=== PATIENT | male | born 1995 | race Caucasian/White ===

== ENCOUNTER 2020-08-31 10:54 | Outpatient (REF) | payer OTHER, SELFPAY | END 2020-08-31 10:55 | disposition home or self-care (01) | LOC: HO.10HDL 10:54 | PROVIDERS: Visit Provider Internal Medicine | DX: J02.9 Acute pharyngitis, unspecified (principal) | CPT/HCPCS: 87071 ==

== ENCOUNTER 2021-12-04 09:39 | Outpatient (REF) | payer OTHER, SELFPAY ==
[2021-12-04 12:35] LABS: Binax Internal Control QC Valid; Binax Lot number: 9864; Binax Now Covid-19 Ag Negative (Negative)
== END 2021-12-04 09:40 | disposition home or self-care (01) ==
LOC: HO.LAB 09:39
PROVIDERS: Visit Provider Internal Medicine
DX: Z20.822 Contact with and (suspected) exposure to COVID-19 (principal)
CPT/HCPCS: 36415

== ENCOUNTER 2023-01-08 10:28 | Emergency (ER) | payer MEDICAID, SELFPAY ==
--- NOTE | 2023-01-08 | ECG_ITS ---
Test Reason : PALPITATIONS Blood Pressure : / mmHG Vent. Rate : 067 BPM Atrial Rate : 067 BPM P-R Int : 152 ms QRS Dur : 086 ms QT Int : 374 ms P-R-T Axes : 048 063 038 degrees QTc Int : 395 ms Normal sinus rhythm with sinus arrhythmia Normal ECG No previous ECGs available Referred By: Yris Castellon Electronically Signed By:IBIS LUA MD
[2023-01-08 10:42] VITALS: BP 153/78; PULSE 83; RESP 18; TEMP 36.8; O2SAT 99; BMI 30.1
[2023-01-08 11:13] LABS: MANUAL DIFF FLAG NO
[2023-01-08 11:20] LABS: Basophils Absolute Auto 0.1 X10*3/uL (0.0-0.2); Basophils Percent Auto 0.7 % (0-2); Eosinophils Absolute Auto 0.1 X10*3/uL (0.0-0.4); Eosinophils Percent Auto 0.7 % (0-4); Hematocrit 43.4 % (42.0-52.0); Hemoglobin 15.1 g/dl (14.0-18.0); Imm Gran Abs Auto 0.03 X10*3/uL (0.00-0.03); Imm Gran Pct Auto 0.4 % (0.0-0.4); Lymphocytes Absolute Auto 1.9 X10*3/uL (1.2-4.9); Lymphocytes Percent Auto 22.7 % (20-40); Mean Corpuscular HGB Conc 34.8 g/dl (31.0-36.0); Mean Corpuscular Hemoglobin 34.6 pg (27.0-33.0); Mean Corpuscular Volume 99.5 fL (80.0-98.0); Mean Platelet Volume 11.5 fL (9.4-12.4); Monocytes Absolute Auto 0.7 X10*3/uL (0.1-1.2); Monocytes Percent Auto 8.5 % (2-11); Neutrophils Absolute Auto 5.5 x10*3/uL (2.0-8.3); Platelet Count 166 X10*3/uL (160-400); Red Blood Count 4.36 X10*6/uL (4.60-5.80); Red Cell Distribution Width 11.4 % (11.0-16.0); White Blood Count 8.2 X10*3/uL (4.8-10.8)
[2023-01-08 11:39] LABS: Alanine Aminotransferase 40 U/L (0-40); Albumin Level 4.5 g/dL (3.5-5.0); Alkaline Phosphatase 79 U/L (39-117); Anion Gap 15 (12-20); Aspartate Amino Transferase 23 U/L (5-37); Bilirubin Direct 0.2 mg/dL (0.0-0.5); Bilirubin Total 0.8 mg/dL (0.0-1.0); Blood Urea Nitrogen 10 mg/dL (9-16); Calcium 9.5 mg/dL (8.4-10.2); Carbon Dioxide 23 mmol/L (22-29); Chloride 106 mmol/L (96-108); Creatinine Clr Calc Pharmacy 142.5; Estimated Glomerular Filt Rate > 60; Glucose Random 95 mg/dL (60-115); Magnesium 1.9 mg/dL (1.6-2.6); Potassium 4.4 mmol/L (3.3-5.1); Sodium 140 mmol/L (135-145); Total Protein 6.7 g/dL (6.5-8.0)
--- NOTE | 2023-01-08 11:50 | ED_ITS ---
HPI - Arrhythmia/Palpitations General Chief Complaint: Arrhythmia/Palpitations Stated Complaint: HBP, racing heart beat Time Seen by Provider: 01/08/23 11:09 Source: patient Mode of arrival: ambulatory Limitations: no limitations History of Present Illness HPI narrative: 27 yo male presents to the ER for evaluation of intermittent heart palpitations for the last few years. He states the symptoms have been increasing in frequency and duration over the last couple of months. He reports over this last weekend he took his blood pressure was noted to be 150/130. He had episode of palpitations along with tingling in his bilateral hands and bilateral feet. He laid down and his symptoms eventually resolved. He denies any associated chest pain or shortness of breath. He states the symptoms self-resolved. He states today when he was on his way to work he had recurrence of palpitations and he started to feel lightheaded. He reports a history of anxiety and history of similar symptoms when he would smoke marijuana. He states the last 2 episodes have not been associated with marijuana smoking. He has not seen his PCP in the last 4 years. He denies any other drugs use. He reports drinking varying amounts of caffeine. MD complaint: palpitations Onset (ago): year(s) Duration: intermittent Severity: similar to previous episodes Context: occurred during rest Associated symptoms: near-syncope, diaphoresis and paresthesias Related Data Previous Rx's Medication Instructions Recorded hydroxyzine HCl 25 mg tablet 25 mg PO TID PRN anxiety #14 tabs 01/08/23 Allergies Allergy/AdvReac Type Severity Reaction Status Date / Time Sulfa (Sulfonamide AdvReac Rash Verified 01/08/23 10:45 Antibiotics) Review of Systems Review of Systems: Yes all other systems are reviewed and are negative [facility] Social History Social History Advance Directives: Yes Advance Directives on File: Yes Advance Directives Date on File: 08/31/20 Physical Exam Vital Signs: Vital Signs: Last Vital Signs Temp 98.3 F 01/08/23 10:42 Pulse 83 01/08/23 10:42 Resp 18 01/08/23 10:42 BP 153/78 H 01/08/23 10:42 Pulse Ox 99 01/08/23 10:42 O2 Del Method 01/08/23 10:42 BMI result Body Mass Index 30.1 Appearance: Alert. Oriented X3. No acute distress. Smells of cigarettes Eyes: Pupils equal, round and reactive to light. ENT: Pharynx normal. Neck: Normal inspection. Neck supple. CVS: Normal heart rate and rhythm. Pulses normal. Respiratory: No respiratory distress. Breath sounds normal. Abdomen: Soft and nontender. +BS x4 Skin: Skin warm and dry. Normal skin color. Normal skin turgor. No rashes. Extremities: No lower extremity edema. No calf swelling, negative Homans sign Neuro: Oriented X 3. No motor deficit. No sensory deficit. Nonfocal Course Course Course Narrative: 19-year-old male with history of marijuana use, anxiety presents to the ER for evaluation of intermittent palpitations for the last several years. He states the frequency of the episodes are increasing as well as the duration. He is currently symptom free but had an episode this morning. His vital signs are st able. Will get basic labs an EKG. Most likely anxiety contributing, also possible adverse side effect to marijuana. Reevaluation(s) Reevaluation #1: Labs are unremarkable. EKG with normal sinus rhythm, sinus arrhythmia/ will prescribe hydroxyzine p.r.n. anxiety and have him follow-up with his PCP. At this time comfortable discharge home with outpatient follow-up Medical Decision Making Differential Diagnosis Differential Diagnoses: The differential diagnosis associated with the presentation includes anxiety, panic attacks, cardiac arrhythmia, hyperthyroidism, electrolyte abnormality, anemia, dehydration, doubt ACS or PE. Lab Data MDM Lab Attestation statement: I reviewed the patient's lab results. Unremarkable workup 01/08/23 11:08 01/08/23 11:08 Labs: Lab Results 01/08/23 01/08/23 Range/Units 11:08 11:08 WBC 8.2 (4.8-10.8) X10*3/uL RBC 4.36 L (4.60-5.80) X10*6/uL Hgb 15.1 (14.0-18.0) g/dl Hct 43.4 (42.0-52.0) % MCV 99.5 H (80.0-98.0) fL MCH 34.6 H (27.0-33.0) pg MCHC 34.8 (31.0-36.0) g/dl RDW 11.4 (11.0-16.0) % Plt Count 166 (160-400) X10*3/uL MPV 11.5 (9.4-12.4) fL Immature Gran % (Auto) 0.4 (0.0-0.4) % Neut % (Auto) 67.0 (45-73) % Lymph % (Auto) 22.7 (20-40) % [place] % (Auto) 8.5 (2-11) % Eos % (Auto) 0.7 (0-4) % Baso % (Auto) 0.7 (0-2) % Lymph # (Auto) 1.9 (1.2-4.9) X10*3/uL [place] # (Auto) 0.7 (0.1-1.2) X10*3/uL Eos # (Auto) 0.1 (0.0-0.4) X10*3/uL Baso # (Auto) 0.1 (0.0-0.2) X10*3/uL Abs Immat Gran (auto) 0.03 (0.00-0.03) X10*3/uL Absolute Neuts (auto) 5.5 (2.0-8.3) x10*3/uL Absolute Nucleated RBC 0.000 (0.0-0.012) X10*3/uL Nucleated RBC % (auto) 0.0 (0.0-0.2) /100WBC Sodium 140 (135-145) mmol/L Potassium 4.4 (3.3-5.1) mmol/L Chloride 106 (96-108) mmol/L Carbon Dioxide 23 (22-29) mmol/L Anion Gap 15 (12-20) BUN 10 (9-16) mg/dL Creatinine 0.84 (0.5-1.4) mg/dL Estim Creat Clear Calc 142.5 Estimated GFR > 60 Random Glucose 95 (60-115) mg/dL Calcium 9.5 (8.4-10.2) mg/dL Magnesium 1.9 (1.6-2.6) mg/dL Total Bilirubin 0.8 (0.0-1.0) mg/dL Direct Bilirubin 0.2 (0.0-0.5) mg/dL AST 23 (5-37) U/L ALT 40 (0-40) U/L Alkaline Phosphatase 79 (39-117) U/L Total Protein 6.7 (6.5-8.0) g/dL Albumin 4.5 (3.5-5.0) g/dL TSH 0.70 (0.32-4.0) uIU/mL Independent Interpretation I performed an independent interpretation of an: EKG Interpretation: EKG with normal sinus rhythm, sinus arrhythmia, ventricular rate 67 beats per minute, normal [place] interval, normal QTC, slightly peaked T-waves in V3 through V6. Normal QRS. No ST segment elevations or depressions. Independent Historian Clinical information obtained from an independent historian. History obtained from or confirmed by: Parent Tests considered The following testing was considered but not selected: CXR - no SOB or chest pain Prescription Management I considered prescription management with: Other (anxiolytic) Critical Care Time Critical Care Time Critical Care Time: No Discharge Plan Discharge Clinical Impression: Palpitations, Anxiety Patient Disposition: Home, Self-Care Instructions: Heart Palpitations (DC), Anxiety (ED) Additional Instructions: Your labs were normal. Your EKG did not show any concerning arrythmia or changes concerning for strain on the heart. Recommend following up with your doctor for further evaluation and treatment Try the prescribed medication as needed for anxiety If you develop new or worsening symptoms call 911 or come back to the ER for further evaluation. Prescriptions: New hydroxyzine HCl 25 mg tablet 25 mg PO TID PRN (Reason: anxiety) Qty: 14 0RF Referrals: Obey Aragon MD [Primary Care Provider] - (palpitations, anxiety) Stand Alone Forms: Work/School Release Interventions: ED Discharge Assessment Last Done: 01/08/23 12:43 Discharge Date/Time: 01/08/23 13:11
== END 2023-01-08 13:11 | disposition home or self-care (01) ==
PROVIDERS: Physician Assistant; Emergency Provider Emergency Medicine; PCP Internal Medicine
DX: R00.2 Palpitations (principal); F41.9 Anxiety disorder, unspecified; F12.90 Cannabis use, unspecified, uncomplicated
CPT/HCPCS: 36415; 80048; 80076; 83735; 84443; 85025; 93005; 99283

== ENCOUNTER 2023-09-26 11:20 | Outpatient (REF) | payer MEDICAID, SELFPAY ==
[2023-09-26 13:13] LABS: Appearance Urine Turbid; Color Urine Dark Yellow; Glucose Urine UA Negative (Negative); Leukocyte Esterase Urine Negative (Negative); Nitrite Urine Negative (Negative); PH 5.5 (5.0-9.0); Specific Gravity - Urine >= 1.030 (1.005-1.025); Urine Blood Negative (Negative); Urine Ketones Negative (Negative); Urine Protein Negative (Neg-Trace)
[2023-09-26 13:25] LABS: MANUAL DIFF FLAG NO
[2023-09-26 13:50] LABS: Basophils Absolute Auto 0.1 X10*3/uL (0.0-0.2); Basophils Percent Auto 0.8 % (0-2); Eosinophils Percent Auto 0.4 % (0-4); Hematocrit 44.2 % (42.0-52.0); Hemoglobin 15.1 g/dl (14.0-18.0); Imm Gran Abs Auto 0.05 X10*3/uL (0.00-0.03); Imm Gran Pct Auto 0.5 % (0.0-0.4); Lymphocytes Absolute Auto 1.8 X10*3/uL (1.2-4.9); Lymphocytes Percent Auto 19.8 % (20-40); Mean Corpuscular HGB Conc 34.2 g/dl (31.0-36.0); Mean Corpuscular Hemoglobin 34.6 pg (27.0-33.0); Mean Corpuscular Volume 101.4 fL (80.0-98.0); Mean Platelet Volume 12.2 fL (9.4-12.4); Monocytes Absolute Auto 0.8 X10*3/uL (0.1-1.2); Monocytes Percent Auto 8.3 % (2-11); Neutrophils Absolute Auto 6.4 x10*3/uL (2.0-8.3); Neutrophils Percent Auto 70.2 % (45-73); Platelet Count 174 X10*3/uL (160-400); Red Blood Count 4.36 X10*6/uL (4.60-5.80); Red Cell Distribution Width 11.6 % (11.0-16.0); White Blood Count 9.1 X10*3/uL (4.8-10.8)
[2023-09-26 14:12] LABS: Alanine Aminotransferase 47 U/L (0-40); Albumin Level 4.6 g/dL (3.5-5.0); Alkaline Phosphatase 81 U/L (39-117); Anion Gap 12 (12-20); Aspartate Amino Transferase 29 U/L (5-37); Bilirubin Total 0.6 mg/dL (0.0-1.0); Blood Urea Nitrogen 16 mg/dL (9-16); C Reactive Protein 0.14 mg/dL (< or = 0.50); Calcium 9.7 mg/dL (8.4-10.2); Carbon Dioxide 24 mmol/L (22-29); Chloride 107 mmol/L (96-108); Estimated Glomerular Filt Rate > 60; Glucose Random 94 mg/dL (60-115); Potassium 3.6 mmol/L (3.3-5.1); Sodium 139 mmol/L (135-145); Total Protein 7.2 g/dL (6.5-8.0)
== END 2023-09-26 11:21 | disposition home or self-care (01) ==
LOC: HO.10HDL 11:20
PROVIDERS: Visit Provider Internal Medicine
DX: R10.32 Left lower quadrant pain (principal); R63.5 Abnormal weight gain
CPT/HCPCS: 36415; 80053; 81003; 84443; 85025; 86140

== ENCOUNTER 2025-11-30 11:05 | Outpatient (AMB) | payer OTHER, SELFPAY ==
--- NOTE | 2025-11-30 11:13 | AM.OFFWIN_ITS ---
Intake Vital Signs 11/30/25 11:14 Height 5 ft 8 in Weight 190 lb BMI 28.9 BP 120/78 Blood Pressure Location Rt brachial Position Sitting Pulse 108 H Pulse Source Pulse Oximeter Temp 97.7 F Temp Source Oral Pulse Oximetry (%) 98 Oxygen Delivery Method Room Air Intake Visit Reasons: EP Possible cyst on back Intake Note: Patient presents c/o growing, inflamed bump on back. Patient states it started leaking this morning. Patient declined TDap immunization today. Nataly Rodriguez CMA Patient Tobacco Use Status: Current everyday Tobacco user Allergies Sulfa (Sulfonamide Antibiotics) Adverse Reaction (Verified 11/30/25 11:17) Rash Medication List - Last Reconciled 11/30/25 by Angel Veliz MD No Known Home Meds HPI EP Possible cyst on back HPI Details History of Present Illness The patient is a 30 year old male presenting with an inflamed and leaking cyst on his back. Infected Sebaceous Cyst: - The patient reports having a cyst on h is back that has become large and inflamed over the last two weeks. - The cyst began leaking this morning. - He reports it is not very painful unle ss he lies on it. - He has no known allergies to antibioti cs. Medical History: - No known drug allergies. - Tetanus immunization is not up to date . Social History: - The patient has tattoos. Problem List - Infected sebaceous cyst - Preventative care: Tetanus immunizatio n Plan - An attempt was made to wendi the cyst; minimal pus was expressed. - The area was cleaned with Betadine bef ore wendi and covered with a sterile gauze dressing after - Prescribed Augmentin to be taken twice daily for 10 days. - Instructed the patient to keep the ban dage on for at least couple of days, and change daily. - Provided the patient with extra gauze for dressing changes at home. - He refuced tetanus vaccine. - Recommended follow-up on Friday for re -evaluation of the cyst. Review of Systems - General: No fever no chills - Neurological: No headaches no dizziness - Ear nose throat: No sore throat no hearing difficulty no ear pain - Cardiovascular: No syncope, no chest pain, no palpitations - Gastrointestinal: No nausea vomiting or diarrhea Physical Exam General: No acute distress HEENT: No acute findings Neck: Supple Respiratory system: Able to talk in full sentences Gastrointestinal: No pain Extremities: No new findings CHILD CARE ASSOCIATE TEACHER: Alert awake oriented x3 motor intact Skin: Cyst on back size of valentine , inflamed , area cleaned with betadine, Laced with number 11 scalpel , not much puss came out , covered with sterile gauze, and skin tape [facility] Social History Patient Tobacco Use Status: Current everyday Tobacco user Advance Directives Date on File: 08/31/20 Physical Exam Vital Signs: Last Vital Signs Temp 97.7 F 11/30/25 11:14 Pulse 108 H 11/30/25 11:14 BP 120/78 11/30/25 11:14 Pulse Ox 98 11/30/25 11:14 Oxygen Delivery Method Room Air 11/30/25 11:14 BMI result Body Mass Index 28.9 Office Procedures Incision and Drainage Details: size of valentine pussy sebaceous cyst upper back in the middle , inflamed has tiny mouth leaking puss, area was cleaned with Betadine and lanced with # 11 blade, little puss came out, area was cleaned again and covered with gauze and skin tape patient refused tdap vaccine tolerated procedure well Incision and drainage performed by: Angel Veliz Informed consent given: Yes Time out checklist: patient, procedure, site marked/identified, positioning of patient (sitting) and supplies available (betadine / sterile gauze / # 11 blade/ sterile gloves / skin tape) Anesthesia: none Incision with: #11 blade Drainage quality: minimal-none Probed cavity: No Culture taken: No Lesion: drainage, fluctuance and induration Lesion size (cm): 4 Hemostasis: pressure Dressing: gauze Patient tolerated procedure: well Complications: No Assessment & Plan Assessment & Plan (1) Back abscess: Code(s): L02.212 - Cutaneous abscess of back [any part, except buttock and flank] Plan Problem List - Infected sebaceous cyst - Preventative care: Tetanus immunization Plan - An attempt was made to wendi the cyst; minimal pus was expressed. - The area was cleaned with Betadine before wendi and covered with a sterile gauze dressing after - Prescribed Augmentin to be taken twice daily for 10 days. - Instructed the patient to keep the bandage on for at least couple of days, and change daily. - Provided the patient with extra gauze for dressing changes at home. - He refuced tetanus vaccine. - Recommended follow-up on Friday for re-evaluation of the cyst. Medications: New amoxicillin-pot clavulanate 875-125 mg 1 tab PO BID 20 tabs 0RF 10 days Discontinued hydroxyzine HCl Discontinued Reason: Patient no longer taking 25 mg PO TID PRN 14 tabs 0RF anxiety Coding Level of Care Code Est Pt Level 4 (09956) Diagnoses Back abscess L02.212 CPT Codes Office Procedure ([id number]) Time Spent (min) 30 Comment time spent in care of this patient
[2025-11-30 11:14] VITALS: BP 120/78; PULSE 108; TEMP 36.5; O2SAT 98; BMI 28.9
--- OUTSIDE RECORDS SUMMARY | 2025-11-30 12:44 | XMS_ITS | Encounter Summary ---
Author Organization [facility] Address [address] [place] [address] Phone Care Team Providers Care Supervisor Pit And Auxiliaries Name Role Phone Belen Kendrick MD Primary Care Provider [phone] Encounter Details Date Type Department Care Team (Late st Contact Info) Description 11/16/2013 [place]ation [facility] [place] [address] [place] [address] Family Medicine, Physician [address] [place], [place] [phone] Social History Tobacco Use Types Packs/Day Years Used Date Smoking Tobacco: Never Assessed Sex and Gender Information Value Date Recorded Sex Assigned at Not on file Legal Sex Male 4:52 PM EDT Gender Identity Not on file Sexual Orientation Not on file documented as of this encounter Plan of Treatment Not on file documented as of this encounter Visit Diagnoses Not on filedocumented in this encounter Care Teams Supervisor Pit And Auxiliaries Relationship Specialty Start Date End Date Belen Kendrick MD [address] [place] [address] PCP - General 07/11/17 documented as of this encounter
--- OUTSIDE RECORDS SUMMARY | 2025-11-30 12:44 | XMS_ITS | Encounter Summary ---
Author Organization [facility] Address [address] [place] [address] Phone Care Team Providers Care Veterans Services Specialist Name Role Phone Belen Kendrick MD Primary Care Provider [phone] Encounter Details Date Type Department Care Team (Late st Contact Info) Description 03/20/2012 Documentation [facility] [place] Family Medicine [address] [place] [address] Family Medicine, Physician [address] [place], [place] [phone] Social History Tobacco Use Types Packs/Day Years [...] on filedocumented in this encounter Care Teams Veterans Services Specialist Relationship Specialty Start Date End Date Belen Kendrick MD [address] [place] [address] PCP - General 07/11/17 documented as of this encounter
--- OUTSIDE RECORDS SUMMARY | 2025-11-30 12:44 | XMS_ITS | Encounter Summary ---
Author Organization [facility] Address [address] [place] [address] Phone Care Team Providers Care Personal Lines Underwriter Name Role Phone Belen Kendrick MD Primary Care Provider [phone] Encounter Details Date Type Department Care Team (Late st Contact Info) Description 05/11/2014 Documentation [facility] [address] [place] [address] Family Medicine, Physician [address] [place], [place] [phone] Social History Tobacco Use Types Packs/Day Years [...] on filedocumented in this encounter Care Teams Personal Lines Underwriter Relationship Specialty Start Date End Date Belen Kendrick MD [address] [place] [address] PCP - General 07/11/17 documented as of this encounter
--- OUTSIDE RECORDS SUMMARY | 2025-11-30 12:44 | XMS_ITS | Encounter Summary ---
Author Organization [facility] Address [address] [place] [address] Phone Care Team Providers Care Iuss Acoustic Analyst Name Role Phone Belen Kendrick MD Primary Care Provider [phone] Encounter Details Date Type Department Care Team (Late st Contact Info) Description 07/05/2013 [place] [facility] [place] [address] [place] [address] Family Medicine, Physician [address] [place], [place] [phone] Social History Tobacco Use Types Packs/Day Years [...] on filedocumented in this encounter Care Teams Iuss Acoustic Analyst Relationship Specialty Start Date End Date Belen Kendrick MD [address] [place] [address] PCP - General 07/11/17 documented as of this encounter
--- OUTSIDE RECORDS SUMMARY | 2025-11-30 12:44 | XMS_ITS | Encounter Summary ---
Author Organization [facility] Address [address] [place] [address] Phone Care Team Providers Care Reduction Furnace Operator Helper Name Role Phone Belen Kendrick MD Primary Care Provider [phone] Encounter Details Date Type Department Care Team (Late st Contact Info) Description 04/02/2013 Documentation [facility] [address] [place] [address] Family Medicine, Physician [address] [place], [place] [phone] Social History Tobacco Use Types Packs/Day Years [...] on filedocumented in this encounter Care Teams Reduction Furnace Operator Helper Relationship Specialty Start Date End Date Belen Kendrick MD [address] [place] [address] PCP - General 07/11/17 documented as of this encounter
--- OUTSIDE RECORDS SUMMARY | 2025-11-30 12:44 | XMS_ITS | Encounter Summary ---
Author Organization [facility] Address [address] [place] [address] Phone Care Team Providers Care Senior Billing Consultant Name Role Phone Belen Kendrick MD Primary Care Provider [phone] Encounter Details Date Type Department Care Team (Late st Contact Info) Description 12/11/2012 Documentation [facility] Family Medicine [address] [place] [address] Family Medicine, Physician [address] [place], [place] [phone] Social History Tobacco Use Types Packs/Day Years [...] on filedocumented in this encounter Care Teams Senior Billing Consultant Relationship Specialty Start Date End Date Belen Kendrick MD [address] [place] [address] PCP - General 07/11/17 documented as of this encounter
--- OUTSIDE RECORDS SUMMARY | 2025-11-30 12:44 | XMS_ITS | Encounter Summary ---
Author Organization [facility] Address [address] [place] [address] Phone Care Team Providers Care Platform Consultant Name Role Phone Belen Kendrick MD Primary Care Provider [phone] Encounter Details Date Type Department Care Team (Late st Contact Info) Description 07/17/2017 Conversion Encounter [facility] [place] [address] [place] [address] Social History Tobacco Use Types Packs/Day Years Used Date Smoking Tobacco: Every Day Comments:Current every day s moker Sex and Gender Information Value Date Recorded Sex Assigned at Not on file Legal Sex Male 4:52 PM EDT Gender Identity Not on file Sexual Orientation Not on file documented as of this encounter Plan of Treatment Not on file documented as of this encounter Visit Diagnoses Not on filedocumented in this encounter Care Teams Platform Consultant Relationship Specialty Start Date End Date Belen Kendrick MD [address] [place] [address] PCP - General 07/11/17 documented as of this encounter
--- OUTSIDE RECORDS SUMMARY | 2025-11-30 12:44 | XMS_ITS | Encounter Summary ---
Author Organization [facility] Address [address] [place] [address] Phone Care Team Providers Care Chaplaincy Name Role Phone Belen Kendrick MD Primary Care Provider [phone] Encounter Details Date Type Department Care Team (Late st Contact Info) Description 05/11/2014 Documentation [facility] [address] [place] [address] Family Medicine, Physician [address] [place], [place] [phone] Social History Tobacco Use Types Packs/Day Years [...] on filedocumented in this encounter Care Teams Chaplaincy Relationship Specialty Start Date End Date Belen Kendrick MD [address] [place] [address] PCP - General 07/11/17 documented as of this encounter
--- OUTSIDE RECORDS SUMMARY | 2025-11-30 12:44 | XMS_ITS | Encounter Summary ---
Author Organization [facility] Address [address] [place] [address] Phone Care Team Providers Care Assembler Small Products Name Role Phone Belen Kendrick MD Primary Care Provider Encounter Details Date Type Department Care Team (Late st Contact Info) Description 03/20/2012 Documentation [facility] [place] Family Medicine [address] [place] [address] Family Medicine, Physician [address] [place], [place] [phone] Social History Tobacco Use Types Packs/Day Years [...] on filedocumented in this encounter Care Teams Assembler Small Products Relationship Specialty Start Date End Date Belen Kendrick MD [address] [place] [address] PCP - General 07/11/17 documented as of this encounter
--- OUTSIDE RECORDS SUMMARY | 2025-11-30 12:44 | XMS_ITS | Encounter Summary ---
Author Organization [facility] Address [address] [place] [address] Phone Care Team Providers Care Back Stayer Name Role Phone Belen Kendrick MD Primary Care Provider [phone] Encounter Details Date Type Department Care Team (Late st Contact Info) Description 11/16/2013 Documentation [facility] [place] [address] [place] [address] Family Medicine, Physician [address] [place], [place] [phone] Social History Tobacco Use Types Packs/Day Years [...] on filedocumented in this encounter Care Teams Back Stayer Relationship Specialty Start Date End Date Belen Kendrick MD [address] [place] [address] PCP - General 07/11/17 documented as of this encounter
--- OUTSIDE RECORDS SUMMARY | 2025-11-30 12:44 | XMS_ITS | Encounter Summary ---
Author Organization [facility] Address [address] [place] [address] Phone Care Team Providers Care Global Category Manager Name Role Phone Belen Kendrick MD Primary Care Provider [phone] Encounter Details Date Type Department Care Team (Late st Contact Info) Description 11/13/2011 Documentation [facility] [address] [place] [address] Family Medicine, Physician [address] [place], [place] [phone] Social History Tobacco Use Types Packs/Day Years [...] on filedocumented in this encounter Care Teams Global Category Manager Relationship Specialty Start Date End Date Belen Kendrick MD [address] [place] [phone] PCP - General 07/11/17 documented as of this encounter
--- OUTSIDE RECORDS SUMMARY | 2025-11-30 12:44 | XMS_ITS | Clinical Summary ---
Author Organization [facility] Address [address] [place] [phone] Phone Care Team Providers Care Hi Teacher Name Role Phone Belen Kendrick MD Primary Care Provider [phone] Immunizations Immunization Administration Dates Next Due DTP 04/30/1996, 5,02/02/1995,12/05 DTaP 5 10/09/1999 H1N1 2009 HPV, Quadrivalent 11/15/2013,07/02/2013,04/01/20 13 Hep A, Adult 05/10/2014 Hep B, ped/adol 04/01/1995,1994,1994 Hib (PRP-T) 01/06/1996, 5,02/02/1995,12/05 Influenza Split 11/12/2011 Influenza, injectable, quadr ivalent, preservative free 11/22/2013 Influenza, injectable, trivalent 08/22/2009,10/31 Influenza, intranasal, trivalent 12/10/2012 MMR 10/05/1998,10/06/1995 Meningococcal Conj (Menactra) MCV4P 07/14/2007 OPV 10/09/1999, 5,02/02/1995,12/05 Tdap 09/02/2006 Varicella 03/16/2009,10/09/1996 Family History Relation Name Status Comments Father Alive Father: Alive a nd well Maternal Grandfather Materna l grandfather: emphysema, Maternal Grandmother Materna l grandmother: , HTN/diabetes Mother Alive Mother: Alive a nd well Other No family histo ry of *Heart Disease, No family history of Stroke, No family history of *CVA/Stroke, Family history of *Dental caries, Family history of Diabetes mellitus, Family history of Thyroid disease, No family history of *Sudden /NM under 55, Family history of Obesity, Family history of Eczema, Family history of Hypertension, Family history of Hyperlipidemia, Family history of Asthma Paternal Grandfather Patersamantha l grandfather: Hypertension, Migraines Paternal Grandmother Alex l grandmother: COPD Social History Tobacco Use Types Packs/Day Years Used Date Smoking Tobacco: Every Day Comments:Current every day renee mccarty Sex and Gender Information Value Date Recorded Sex Assigned at Not on file Legal Sex Male 4:52 PM EDT Gender Identity Not on file Sexual Orientation Not on file Last Filed Vital Signs Vital Sign Reading Time Taken Comments Blood Pressure 114/59 05/10/2014 12:00 AM EDT Pulse 82 04/01/2013 12:00 AM EDT Temperature 37.1 C (98.8 F) 02/10/2014 12:00 AM EDT Respiratory Rate - - Oxygen Saturation - - Inhaled Oxygen Concentration - - Weight 66.2 kg (146 lb) 05/10/2014 12:00 AM EDT Height 174 cm (5' 8.5 ) 05/10/2014 12:00 AM EDT Body Mass Index 21.88 05/10/2014 12:00 AM EDT Plan of Treatment Health Maintenance Due Date Last Done Comments DTaP,Tdap,and Td Vaccines (7 - Td or Tdap) 09/02/2016 09/02/2006, 10/09/1999, 04/30/1996, Additional history exists Influenza Vaccines (#1) 2025 11/22/20 13, 12/10/2012, 11/12/2011, Additional history exists COVID-19 Vaccine ( season) 2025 Hepatitis B Vaccines Completed 04/01/1995, 1994, 1994 HIB Vaccines Completed 01/06/1996, 01/1995, 02/02/1995, Additional history exists MMR Vaccines Completed 10/05/1998, 10/06/1995 IPV Vaccines Completed 10/09/1999, 01/1995, 02/02/1995, Additional history exists Meningococcal Vaccine Aged Out 07/14/2007 No liz jeni eligible based on patient's age to complete this topic Varicella Vaccines Completed 03/16/2009, 10/09/1996 HPV Vaccines Completed 11/15/2013, 01/2013, 04/01/2013 Hepatitis A Vaccines Aged Out 05/10/2014 No long er eligible based on patient's age to complete this topic Men B Vaccine Aged Out No longer elig ible based on patient's age to complete this topic Pneumococcal Vaccine Aged Out No long er eligible based on patient's age to complete this topic Care Teams Hi Teacher Relationship Specialty Start Date End Date Belen Kendrick MD [address] [facility] [place] [address] PCP - General 07/11/17
--- OUTSIDE RECORDS SUMMARY | 2025-11-30 12:44 | XMS_ITS | Encounter Summary ---
Author Organization [facility] Address [address] [place] [address] Phone Care Team Providers Care Clay Burner Name Role Phone Belen Kendrick MD Primary Care Provider [phone] Encounter Details Date Type Department Care Team (Late st Contact Info) Description 11/23/2013 Documentation [facility] [place] Family Medicine [address] [place] [address] Family Medicine, Physician [address] [place], [place] [phone] Social History Tobacco Use Types Packs/Day Years [...] on filedocumented in this encounter Care Teams Clay Burner Relationship Specialty Start Date End Date Belen Kendrick MD [address] [place] [address] PCP - General 07/11/17 documented as of this encounter
--- OUTSIDE RECORDS SUMMARY | 2025-11-30 12:44 | XMS_ITS | Encounter Summary ---
Author Organization [facility] Address [address] [place] [address] Phone Care Team Providers Care Turkey Egg Gatherer Name Role Phone Belen Kendrick MD Primary Care Provider [phone] Encounter Details Date Type Department Care Team (Late st Contact Info) Description 01/17/2017 Documentation [facility] [place] Family Medicine [address] [place] [address] Family Medicine, Physician [address] [place], [place] [phone] Social History Tobacco Use Types Packs/Day Years [...] on filedocumented in this encounter Care Teams Turkey Egg Gatherer Relationship Specialty Start Date End Date Belen Kendrick MD [address] [place] [address] [place] [address] PCP - General 07/11/17 documented as of this encounter
--- OUTSIDE RECORDS SUMMARY | 2025-11-30 12:44 | XMS_ITS | Encounter Summary ---
Author Organization [facility] Address [address] [place] [address] Phone Care Team Providers Care Document Review Specialist Name Role Phone Belen Kendrick MD Primary Care Provider [phone] Encounter Details Date Type Department Care Team (Late st Contact Info) Description 11/16/2013 Documentation [facility] [place] Family Medicine [address] [place] [address] Family Medicine, Physician [address] [place], [place] [phone] Social History Tobacco Use Types Packs/Day Years [...] on filedocumented in this encounter Care Teams Document Review Specialist Relationship Specialty Start Date End Date Belen Kendrick MD [address] [place] [phone] PCP - General 07/11/17 documented as of this encounter
--- OUTSIDE RECORDS SUMMARY | 2025-11-30 12:44 | XMS_ITS | Encounter Summary ---
Author Organization [facility] Address [address] [place] [address] Phone Care Team Providers Care Bending Roll Operator Name Role Phone Belen Kendrick MD Primary Care Provider [phone] Encounter Details Date Type Department Care Team (Late st Contact Info) Description 04/02/2013 Documentation [facility] Family Medicine [address] [place] [address] Family Medicine, Physician [address] [place], [place] [phone] Social History Tobacco Use Types Packs/Day Years [...] on filedocumented in this encounter Care Teams Bending Roll Operator Relationship Specialty Start Date End Date Belen Kendrick MD [address] [place] [phone] PCP - General 07/11/17 documented as of this encounter
--- OUTSIDE RECORDS SUMMARY | 2025-11-30 12:44 | XMS_ITS | Encounter Summary ---
Author Organization [facility] Address [address] [place] [address] Phone Care Team Providers Care Scheme Technician Name Role Phone Belen Kendrick MD Primary Care Provider [phone] Encounter Details Date Type Department Care Team (Late st Contact Info) Description 02/11/2014 Documentation [place] [facility] [address] [place] [address] Family Medicine, Physician [address] [place], [place] [phone] Social History Tobacco Use Types Packs/Day Years [...] on filedocumented in this encounter Care Teams Scheme Technician Relationship Specialty Start Date End Date Belen Kendrick MD [address] [place] [address] PCP - General 07/11/17 documented as of this encounter
--- OUTSIDE RECORDS SUMMARY | 2025-11-30 12:44 | XMS_ITS | Encounter Summary ---
Author Organization [facility] Address [address] [place] [phone] Phone Care Team Providers Care Math Interventionist Name Role Phone Belen Kendrick MD Primary Care Provider Encounter Details Date Type Department Care Team (Late st Contact Info) Description 11/23/2013 Documentation [facility] [place] Family Medicine [address] [place] [address] Family Medicine, Physician [address] [place], [place] [phone] Social History Tobacco Use Types Packs/Day Years [...] on filedocumented in this encounter Care Teams Math Interventionist Relationship Specialty Start Date End Date Belen Kendrick MD [address] [place] [address] PCP - General 07/11/17 documented as of this encounter
--- OUTSIDE RECORDS SUMMARY | 2025-11-30 12:44 | XMS_ITS | Encounter Summary ---
Author Organization [facility] Address [address] [place] [address] Phone Care Team Providers Care Integrated Logistics Support Manager Name Role Phone Belen Kendrick MD Primary Care Provider [phone] Encounter Details Date Type Department Care Team (Late st Contact Info) Description 04/02/2013 Documentation [facility] [address] [place] [address] Family Medicine, Physician [address] [place], [place] [phone] Social History Tobacco Use Types Packs/Day Years [...] on filedocumented in this encounter Care Teams Integrated Logistics Support Manager Relationship Specialty Start Date End Date Belen Kendrick MD [address] [place] [address] PCP - General 07/11/17 documented as of this encounter
--- OUTSIDE RECORDS SUMMARY | 2025-11-30 12:44 | XMS_ITS | Encounter Summary ---
Author Organization [facility] Address [address] [place] [address] Phone Care Team Providers Care Field Technical Specialist Name Role Phone Belen Kendrick MD Primary Care Provider [phone] Encounter Details Date Type Department Care Team (Late st Contact Info) Description 07/05/[address] [facility] [place] [address] [place] [address] Family Medicine, Physician [address] [place], [place] [phone] Social History Tobacco Use Types Packs/Day Years [...] on filedocumented in this encounter Care Teams Field Technical Specialist Relationship Specialty Start Date End Date Belen Kendrick MD [address] [place] [phone] PCP - General 07/11/17 documented as of this encounter
== END 2025-11-30 11:42 | disposition home or self-care (01) ==
PROVIDERS: PCP Internal Medicine; Visit Provider Internal Medicine
DX: L02.212 Cutaneous abscess of back [any part, except buttock and flank] (principal)

== ENCOUNTER → 2025-11-30 11:05 | Outpatient (BNVA) | payer OTHER, SELFPAY | PROVIDERS: PCP Internal Medicine; Visit Provider Internal Medicine | DX: L02.212 Cutaneous abscess of back [any part, except buttock and flank] (principal); Z28.21 Immunization not carried out because of patient refusal | CPT/HCPCS: 10060 ==